=== PATIENT | female | born 1930 | race Caucasian/White ===

== ENCOUNTER 2016-11-07 15:46 | Emergency (ER) | payer OTHER ==
[2016-11-07 13:14] LABS: BASOPHILS 0.3 %; BASOPHILS ABSOLUTE 0.02 10/3/uL (0.0-0.16); EOSINOPHILS 3.6 %; EOSINOPHILS ABSOLUTE 0.21 10/3/uL (0.0-0.53); ER CBC TAT 0 Hrs 03 Mins; HEMATOCRIT 33.6 % (36.0-48.0); HEMOGLOBIN 11.5 g/dL (12.0-16.0); LYMPHOCYTES 19.5 %; LYMPHOCYTES ABSOLUTE 1.13 10/3/uL (0.67-4.30); MEAN CORPUS HGB CONC 34.2 g/dL (32.0-36.0); MEAN CORPUSCULAR HEMOGLOB 30.8 pg (26.0-34.0); MEAN CORPUSCULAR VOLUME 90.1 fL (80-100); MEAN PLATELET VOLUME 8.8 fL (9.2-13.0); MONOCYTES 4.8 %; MONOCYTES ABSOLUTE 0.28 10/3/uL (0.21-1.20); NEUTROPHILS 71.8 %; NEUTROPHILS ABSOLUTE 4.15 10/3/uL (2.02-8.40); PLATELET COUNT 182 10/3/uL (150-400); RBC DISTRIBUTION WIDTH 14.1 % (12.0-16.0); RED CELL COUNT 3.73 10/6/uL (4.0-5.6); WHITE BLOOD CELLS 5.8 10/3/uL (4.5-10.5)
[2016-11-07 13:15] LABS: MANUAL DIFF NO %
[2016-11-07 13:22] LABS: PARTIAL THROMBO TIME 33.2 SEC (22.5-37.2)
[2016-11-07 13:31] LABS: BUN (BLOOD UREA NITROGEN) 24 MG/DL (6-23); CALCIUM, SERUM 8.5 MG/DL (8.5-10.4); CHEST PAIN PROFILE TAT 0 Hrs 20 Mins; CHLORIDE, SERUM 108 MMOL/L (96-112); CO2 (CARBON DIOXIDE) 25 MMOL/L (24-34); CREATININE 1.41 MG/DL (0.55-1.02); GFR AFRICAN AMERICAN 39 ML/MIN (>=60); GFR NON AFRICAN AMERICAN 34 ML/MIN (>=60); GLUCOSE, SERUM 267 MG/DL (60-99); SODIUM, SERUM 139 MMOL/L (135-148); TROPONIN I <0.02 NG/ML (<0.05)
[2016-11-07 13:33] LABS: ASCORBIC ACID (UR NOT ORDER) NEG (NEG); BILIRUBIN, URINE NEGATIVE (NEG); ER URINALYSIS TAT 0 Hrs 12 Mins; KETONE, URINE NEGATIVE (NEG); LEUKOCYTE ESTERASE(NOT OR TRACE (NEG); WBC (NOT ORDERED) (RFLEX) 5 (0-5)
[2016-11-07 13:35] LABS: INTERNATIONAL NORMAL RATI 1.7 UNITS (-)
[2016-11-07 13:35] LABS: NITRITE (URINE) NEG (NEG)
[2016-11-07 13:36] LABS: PROTIME (NOT ORD) 19.7 SEC (12.0-14.5)
[~2016-11-07 15:46] MED LIST: ACARBOSE25 MG PO; AMB5 PO; ASAB PO; AUG875 PO; BUSPAR10 PO; CAT1 PO; CIP2 PO; CLEOCIN300 MG PO; COREG12 PO; COREG3 PO; COREG6 PO; COUMADIN6 MG PO; CRESTOR40 MG PO; DRAMAMINE25 MG PO; FERROUS SULF325 M1 PO; FISH OIL PO; FLONASE NAS; GGEXPUD PO; GLUCOPHAGE1000 MG PO; HALF81 PO; HUMALOG SC; HUMALOGPEN SC; IMOD PO; IRON325 MG PO; KLOR-CON M1010 MEQ PO; L20 PO; L40; L40 PO; LANTUS SC; LANTUSCART SC; LEVAQUIN750 MG PO; LEVOTHYROXIN25 MCG PO; LIDODERM T; LORTAB10 PO; MACRO50B PO; MACROBID PO; MCZ25 PO; MUCINEX DM1 TA1 OR; MUCINEX600 MG PO; NATURA2 OP; NEUR300 PO; NEXIUM40 PO; NORV10 PO; NORV25 PO; NORV5 PO; NOVOLOG SC; OMNICEF300 PO; PAXIL40 MG PO; PEPTO BISMOL LIQ1 ML PO; PRAVACHOL40 MG PO; PRECOSE25 MG PO; PRILO PO; PRIN20 PO; PROAIR HFA INH; REM15 PO; REQUIP5 PO; STARLIX120 PO; SYN.025B PO; TESSALON200 MG PO; TOPXL25 PO; ULTRAM50 PO; VASOTEC10 PO; VASOTEC20 MG PO; VIST50 PO; VITAMIN B12 PO; VITAMIN D PO; ZESTRIL20 MG PO; ZOCOR20 PO; ZOCOR40 PO; ZOFRAN4 PO
== END 2016-11-07 15:53 | disposition home or self-care (01) ==
LOC: ER 15:46
PROVIDERS: Nurse Practitioner
DX: E11.65 Type 2 diabetes mellitus with hyperglycemia (principal); N18.9 Chronic kidney disease, unspecified; D64.9 Anemia, unspecified; Z88.2 Allergy status to sulfonamides; Z88.8 Allergy status to other drugs, medicaments and biological substances; Z88.1 Allergy status to other antibiotic agents; Z79.4 Long term (current) use of insulin; Z79.01 Long term (current) use of anticoagulants; Z79.899 Other long term (current) drug therapy
CPT/HCPCS: 71010; 80048; 81001; 82962; 83735; 84484; 85025; 85610; 85730; 93005; 99285